=== PATIENT | female | born 1965 | race Caucasian/White ===

== ENCOUNTER 2022-08-25 11:16 | Emergency (ER) | payer BC, SELFPAY ==
[2022-08-25 11:30] VITALS: BP 110/65; PULSE 80; RESP 34; O2SAT 98; BMI 21.9
--- NOTE | 2022-08-25 11:59 | ED_ITS ---
HPI - General Adult General Chief complaint: Unspecified Complaint, Adult Stated complaint: Irregular heartrate, nausea, numb r shoulder Time Seen by Provider: 08/25/22 11:47 History of Present Illness HPI narrative: This 56-year-old female was traveling from [facility] up to the [place] [employer] for his football game when she began to have nausea and vomiting with pain in her left shoulder and arm. She had symptoms like this about 10 days ago and went to the emergency department near her home. She states that she received aspirin and nitroglycerin on the way there and that did provide some relief to her symptoms. Test results at that visit returned normal and she was discharged home. She has similar symptoms again today that started without exertion. She continues to have nausea with vomiting. She does not report any shortness of breath or diaphoresis. She does not have any cardiac risk factors except for family history. She states that her father had a massive heart attack at the same age that she is currently. Related Data Home Medications Medication Instructions Recorded Confirmed sertraline 50 mg tablet (Zoloft) 50 mg PO DAILY 08/25/22 08/25/22 Previous Rx's Medication Instructions Recorded lorazepam 0.5 mg tablet (Ativan) 0.5 mg PO BID PRN #10 tabs 08/25/22 ondansetron HCl 4 mg tablet 4 mg PO Q6H #20 tabs 08/25/22 Allergies Allergy/AdvReac Type Severity Reaction Status Date / Time No Known Drug Allergies Allergy Verified 08/25/22 11:39 Review of Systems Status of ROS: Reports: 10 or more systems reviewed and unremarkable except as noted in History and below Narrative: Constitutional: No fevers, no weight gain or loss. Eyes: No discharge. No vision changes. HENT: No congestion, no sore throat, no ear pain. Cardiovascular: Palpitations. Left shoulder pain and left arm pain. Respiratory: No shortness of breath, no wheezes, no cough. Gastrointestinal: No abdominal pain, no diarrhea. Nausea and vomiting. Genitourinary: No dysuria, no hematuria. Musculoskeletal: Normal range of motion. Skin: No rashes, no pruritis. Neurological: No dizziness, weakness, sensory change, speech change. Endo/Heme/Allergies: No bruising or bleeding. No polydipsia. Pysch: no suicidality, no anxiety, no insomnia. All other systems reviewed and are negative. PFSH PFSH Social History Smoking Status: Never smoker Do you use any of these nicotine containing products: None Second hand tobacco smoke exposure: No How often do you have a drink containing alcohol: monthly or less AUDIT-C Alcohol total score: 1 Non-prescribed substance use: denies use Exam Narrative: Exam Narrative: Constitutional: Well-developed, well-nourished. HEENT: Normocephalic, atraumatic. Neck: Normal range of motion. Nontender. Supple. Heart: Regular. No murmurs. Normal rate. Intact distal pulses. Lungs: Clear to auscultation. No wheezes, rhonchi, or rales. Abdomen: Normal bowel sounds. Nontender. No rebound tenderness. Nausea with vomiting. Genitalia: Deferred. Back: No midline tenderness. Normal range of motion. Extremities: Normal range of motion. No injury. Skin: Intact. No rash. Warm. No erythema or pallor. Neurologic: No altered sensation. No weakness. Alert and oriented. Psychiatric: No suicidality. No anxiety or depression. No insomnia. Nursing notes and vitals signs are reviewed. Const: Vital Signs, click to edit/add: Vital Signs - 24 hr 08/25/22 11:30 Pulse Rate [Pulse Oximeter] 80 Respiratory Rate 34 H Blood Pressure [Le ft Upper Arm] 110/65 Pulse Oximetry 98 Oxygen Delivery Me thod Room Air Course Vital Signs Vital signs: Initial Vital Signs Pulse Rate 80 08/25/22 11:30 Respiratory Rate 34 H 08/25/22 11:30 Blood Pressure 110/65 08/25/22 11:30 Blood Pressure Mean 80 08/25/22 11:30 Blood Pressure Position Supine 08/25/22 11:30 Pulse Oximetry 98 08/25/22 11:30 Oxygen Delivery Method 08/25/22 11:30 Vital Signs Pulse Rate 80 08/25/22 11:30 Respiratory Rate 34 H 08/25/22 11:30 Blood Pressure 110/65 08/25/22 11:30 Pulse Oximetry 98 08/25/22 11:30 Oxygen Delivery Method 08/25/22 11:30 Pulse Rate 80 08/25/22 11:30 Respiratory Rate 34 H 08/25/22 11:30 Blood Pressure 110/65 08/25/22 11:30 Pulse Oximetry 98 08/25/22 11:30 Oxygen Delivery Method 08/25/22 11:30 Medical Decision Making MDM Narrative Medical decision making narrative: This patient arrives with nausea and vomiting and has a rather significant amount of anxiety regarding her symptoms. She did not have any chest pain. An IV was established where she received normal saline and a dose of Zofran 4 mg. This brought relief to her symptoms. I did also order 4 baby aspirin but she did not take these as she was concerned that she may vomit. Her EKG returns with sinus rhythm with occasional PACs. There are no ST or T-wave abnormalities. Additionally her labs returned in normal ranges with a troponin at 0. These results are communicated with the patient who states that she feels much better now. It seems that there is a significant anxiety component accompanying these symptoms or perhaps causing them. She did receive nitroglycerin in a previous visit with similar symptoms. She states that this helped her some. There could be a GI component to her symptoms however she did not ever have any chest pain. She is okay to return home. I did discuss studies that can be done to further evaluate her heart and GI tract. A prescription for Zofran and Ativan is provided. Lab Data Labs: Lab Results 08/25/22 08/25/22 08/25/22 Range/Units 12:10 12:20 12:20 WBC 5.20 (4.50-11.00) K/uL RBC 4.63 (4.00-5.20) m/uL Hgb 13.9 (12.0-16.0) gm/dL Hct 40.3 (33.0-51.0) % MCV 87 (80-100) fL MCH 30 (26-34) pg MCHC 35 (32-36) gm/dL RDW Coeff of Boris 12.3 (11.5-15.5) % Plt Count 281 (140-440) K/uL Neut % (Auto) 77.3 H (42.0-72.0) % Lymph % (Auto) 17.9 L (20-44) % Mcculloch % (Auto) 4.0 (0.0-11.0) % Eos % (Auto) 0.4 (0.0-7.0) % Baso % (Auto) 0.4 (0.0-3.0) % Neut # (Auto) 4.00 (1.7-7.0) K/uL Lymph # (Auto) 0.90 (0.90-2.90) K/uL Mcculloch # (Auto) 0.20 (0.00-0.90) K/UL Eos # (Auto) 0.02 (0.00-0.50) K/uL Baso # (Auto) 0.02 (0.00-0.30) K/uL Abs Immat Gran (auto) 0.00 (0.00-0.30) K/uL Sodium 137 (135-149) mmol/L Potassium 3.5 L (3.6-5.1) mmol/L Chloride 102 (96-114) mmol/L Carbon Dioxide 22 (20-32) mmol/L BUN 18 (7-30) mg/dL Creatinine 0.8 (0.5-1.5) mg/dL Estimated Creat Clear 62.10 Estimated GFR 86 ml/min Glucose 201 H (60-115) mg/dL Calcium 9.7 (8.4-10.6) mg/dL POC Troponin I 0.00 L (0.01-0.04) ng/ml ECG Data Attestation: I personally reviewed and interpreted this ECG as follows: Interpretation: Sinus rhythm with premature atrial complexes. Rate is 70 beats per minute. There are no specific ST or T-wave abnormalities. Discharge Plan Discharge Clinical Impression: Anxiety, Vomiting Patient Disposition: Home, Self-Care Condition: Improved Additional Instructions: Take medication as needed and prescribed. Follow up with MD or return if worsening. Prescriptions: New ondansetron HCl 4 mg tablet 4 mg PO Q6H Qty: 20 0RF lorazepam [Ativan] 0.5 mg tablet 0.5 mg PO BID PRNQty: 10 0RF No Action sertraline [Zoloft] 50 mg tablet 50 mg PO DAILY Follow Up/Referrals: Provider,Not a Local [Primary Care Provider] - Stand Alone Forms: [employer] Info Instructions
[2022-08-25] MEDS: ONDANSETRON 2 MG/ML inj 4 MG IVP (12:37)
[2022-08-25] MEDS: 0.9 % SODIUM CHLORIDE 1000 ml 1,000 ML IV (12:37)
[2022-08-25 12:38] LABS: Basophils Absolute Auto 0.02 K/uL (0.00-0.30); Basophils Percent Auto 0.4 % (0.0-3.0); Eosinophils Absolute Auto 0.02 K/uL (0.00-0.50); Eosinophils Percent Auto 0.4 % (0.0-7.0); Hematocrit 40.3 % (33.0-51.0); Hemoglobin* 13.9 gm/dL (12.0-16.0); Lymphocytes Percent Auto 17.9 % (20-44); Mean Corpuscular HGB Conc 35 gm/dL (32-36); Mean Corpuscular Hemoglobin 30 pg (26-34); Mean Corpuscular Volume 87 fL (80-100); Neutrophils Percent Auto 77.3 % (42.0-72.0); Platelet Count* 281 K/uL (140-440); RDW Coefficient of Variation % 12.3 % (11.5-15.5); Red Blood Count 4.63 m/uL (4.00-5.20)
[2022-08-25 12:41] LABS: Slide Review Reflex No
[2022-08-25 12:51] LABS: Chloride* 102 mmol/L (96-114); Sodium* 137 mmol/L (135-149)
[2022-08-25 12:52] LABS: Potassium* 3.5 mmol/L (3.6-5.1)
[2022-08-25 12:54] LABS: Carbon Dioxide* 22 mmol/L (20-32); Creatinine* 0.8 mg/dL (0.5-1.5); Estimated Glomerular Filt Rate 86 ml/min
[2022-08-25 12:55] LABS: Blood Urea Nitrogen* 18 mg/dL (7-30); Calcium* 9.7 mg/dL (8.4-10.6); Glucose* 201 mg/dL (60-115)
[2022-08-25 13:38] VITALS: BP 141/86; PULSE 57; RESP 18; O2SAT 93
== END 2022-08-25 15:23 | disposition home or self-care (01) ==
PROVIDERS: Emergency Provider Emergency Medicine Emergency Medical Services
DX: F41.9 Anxiety disorder, unspecified (principal); R11.2 Nausea with vomiting, unspecified
CPT/HCPCS: 36415; 80048; 84484; 85025; 93005; 96361; 96374; 99284; 99285; J2405; J7030